=== PATIENT | male | born 1950 | race Caucasian/White ===

== ENCOUNTER → 2018-06-25 | Outpatient (CLI) | payer OTHER | LOC: CAT 13:36 | DX: Z13.6 Encounter for screening for cardiovascular disorders (principal); E78.00 Pure hypercholesterolemia, unspecified ==

== ENCOUNTER → 2020-11-09 | Outpatient (CLI) | payer OTHER | LOC: SJCVCIMAG 13:46 | PROVIDERS: ATTEND Internal Medicine Cardiovascular Disease | DX: I87.2 Venous insufficiency (chronic) (peripheral) (principal); M79.662 Pain in left lower leg; M79.89 Other specified soft tissue disorders ==

== ENCOUNTER → 2020-12-15 | Outpatient (CLI) | payer OTHER | LOC: SJCVCIMAG 08:17 | PROVIDERS: ATTEND Internal Medicine Cardiovascular Disease | DX: I49.1 Atrial premature depolarization (principal); I44.0 Atrioventricular block, first degree; I45.2 Bifascicular block; R93.1 Abnormal findings on diagnostic imaging of heart and coronary circulation; I25.10 Atherosclerotic heart disease of native coronary artery without angina pectoris; I10 Essential (primary) hypertension; E78.5 Hyperlipidemia, unspecified; R53.83 Other fatigue; R06.00 Dyspnea, unspecified ==